=== PATIENT | male | born 1995 | race Caucasian/White ===

== ENCOUNTER 2016-09-07 02:11 | Emergency (ER) | payer MEDICAID ==
[2016-09-07 03:40] VITALS: BP 143/92
== END 2016-09-07 03:40 | disposition home or self-care (01) ==
LOC: ED 02:11
DX: M54.6 Pain in thoracic spine (principal); J45.909 Unspecified asthma, uncomplicated; Z79.51 Long term (current) use of inhaled steroids
CPT/HCPCS: J2270; Q0092; Q0162

== ENCOUNTER 2016-10-15 19:21 | Emergency (ER) | payer MEDICAID ==
[2016-10-15 20:50] VITALS: BP 146/83
== END 2016-10-15 20:50 | disposition home or self-care (01) ==
LOC: ED 19:21
DX: J45.901 Unspecified asthma with (acute) exacerbation (principal); Z88.8 Allergy status to other drugs, medicaments and biological substances
CPT/HCPCS: J7512; J7620

== ENCOUNTER 2016-12-24 13:54 | Emergency (ER) | payer SELFPAY ==
[~2016-12-24] VITALS: Ht 170.2 cm; Wt 73.9 kg
[2016-12-24 17:15] VITALS: BP 130/74
== END 2016-12-24 17:39 | disposition home or self-care (01) ==
LOC: ED 13:54
DX: J45.901 Unspecified asthma with (acute) exacerbation (principal); Z79.51 Long term (current) use of inhaled steroids
CPT/HCPCS: J7512; J7613; J7644

== ENCOUNTER 2017-03-28 09:53 | Emergency (ER) | payer SELFPAY ==
[~2017-03-28] VITALS: Ht 167.6 cm; Wt 73.5 kg
[2017-03-28 09:59] VITALS: Ht 167.6 cm; Wt 73.5 kg
[2017-03-28 11:15] VITALS: BP 142/76
== END 2017-03-28 11:15 | disposition home or self-care (01) ==
LOC: ED 09:53
DX: J45.901 Unspecified asthma with (acute) exacerbation (principal)
CPT/HCPCS: J7512; J7613; J7644

== ENCOUNTER 2017-05-10 12:57 | Emergency (ER) | payer OTHER ==
[~2017-05-10] VITALS: Ht 170.2 cm; Wt 73.7 kg
[2017-05-10 13:05] VITALS: BP 129/73; Ht 170.2 cm; Wt 73.7 kg
== END 2017-05-10 13:51 | disposition home or self-care (01) ==
LOC: ED 12:57
DX: J45.909 Unspecified asthma, uncomplicated (principal); Z76.0 Encounter for issue of repeat prescription

== ENCOUNTER 2017-11-27 17:03 | Emergency (ER) | payer OTHER ==
[~2017-11-27] VITALS: Ht 167.6 cm; Wt 62.6 kg
[2017-11-27 17:06] VITALS: Ht 167.6 cm; Wt 62.6 kg
[2017-11-27 18:31] VITALS: BP 111/64
== END 2017-11-27 18:31 | disposition home or self-care (01) ==
LOC: ED 17:03
DX: J45.901 Unspecified asthma with (acute) exacerbation (principal)
CPT/HCPCS: J7512; J7613; J7644

== ENCOUNTER 2018-01-19 21:58 | Emergency (ER) | payer OTHER ==
[~2018-01-19] VITALS: Ht 167.6 cm; Wt 63.0 kg
[2018-01-19 22:08] VITALS: Ht 167.6 cm; Wt 63.0 kg
[2018-01-19 23:17] VITALS: BP 139/97
== END 2018-01-19 23:17 | disposition home or self-care (01) ==
LOC: ED 21:58
DX: F41.9 Anxiety disorder, unspecified (principal); J45.909 Unspecified asthma, uncomplicated

== ENCOUNTER 2018-05-14 09:05 | Emergency (ER) | payer OTHER ==
[~2018-05-14] VITALS: Ht 167.6 cm; Wt 63.5 kg
[2018-05-14 09:15] VITALS: BP 135/80; Ht 167.6 cm; Wt 63.5 kg
== END 2018-05-14 11:15 | disposition left against medical advice (07) ==
LOC: ED 09:05
DX: Z53.21 Procedure and treatment not carried out due to patient leaving prior to being seen by health care provider (principal)

== ENCOUNTER 2018-07-18 17:51 | Emergency (ER) | payer OTHER ==
[~2018-07-18] VITALS: Ht 167.6 cm; Wt 65.3 kg
[2018-07-18 17:54] VITALS: BP 143/86; Ht 167.6 cm; Wt 65.3 kg
== END 2018-07-18 18:50 | disposition home or self-care (01) ==
LOC: ED 17:51
DX: J45.909 Unspecified asthma, uncomplicated (principal); F41.9 Anxiety disorder, unspecified
CPT/HCPCS: J1100; J7620